=== PATIENT | female | born 1995 | race Caucasian/White ===

== ENCOUNTER 2019-08-13 01:07 | Emergency (ER) | payer SELFPAY ==
[~2019-08-13] VITALS: Ht 160 cm; Wt 64.9 kg
[2019-08-13 01:25] VITALS: BP_SYST 144
--- NOTE | 2019-08-13 01:25 | NUR ---
Pt c/o rash to buttocks and BLE that was exacerbated by water from showering. Pt describes rash as burning. No SOB, airway patent.
--- NOTE | 2019-08-13 01:40 | NUR ---
MARGAUX Slaughter at bedside examining patient. Addendum: 08/13/19 at 0145 by [email or web address] accompanied by magnolia
[2019-08-13] MEDS ORDERED: PREDNISONE 20 MG TABLET PO ONE (01:45)
--- NOTE | 2019-08-13 01:56 | NUR ---
rapid strep collected and sent to lab for processing.
--- NOTE | 2019-08-13 01:58 | NUR ---
urine collected and sent to lab.
--- NOTE | 2019-08-13 02:02 | NUR ---
medicated per md orders. patient tolerated well
[2019-08-13 02:17] VITALS: BP_SYST 144
--- NOTE | 2019-08-13 02:17 | NUR ---
Patient given written and verbal discharge instructions and verbalizes understanding. ER MD discussed with patient the results and treatment provided. Patient in stable condition. ID arm band removed. Rx of prednisone given. Patient educated on pain management and to follow up with PMD. Pain Scale 0/10 Opportunity for questions provided and answered. Medication side effect fact sheet provided.
== END 2019-08-13 02:17 | disposition home or self-care (01) ==
LOC: SED 01:07
DX: R21 Rash and other nonspecific skin eruption (principal); F17.290 Nicotine dependence, other tobacco product, uncomplicated; F12.90 Cannabis use, unspecified, uncomplicated
CPT/HCPCS: 86403; 86592; 87081; 99283; J7512; 36415; 87491; 87591